=== PATIENT | male | born 1995 | race Caucasian/White ===

== ENCOUNTER 2016-09-02 17:58 | Emergency (ER) | payer OTHER ==
[~2016-09-02] VITALS: Ht 177.8 cm; Wt 86.0 kg
[2016-09-02 18:09] VITALS: BP 107/68; TEMP 36.6; Ht 177.8 cm; Wt 86.0 kg
[2016-09-02] MEDS ORDERED: SODIUM CHLORIDE 0.9% 1000ML 1,000 ML IV STA (18:16)
[2016-09-02] MEDS ORDERED: FENTANYL CITRATE INJ 50 MCG/1 ML 2 ML VIAL IV STA (18:16)
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
[2016-09-02] MEDS ORDERED: HYDROmorphone INJ 1 MG/ML SYR IV PRN (18:30)
--- NOTE | 2016-09-02 19:05 | DIAGNOSTIC IMAGING REPORT ---
RIGHT FOREARM 2 VIEWS ROUTINE CLINICAL HISTORY: right forearm injury Right COMPARISON STUDY: None. FINDINGS: Displaced midshaft fractures involving the radius and ulna. There is soft tissue swelling within the mid forearm. The wrist and elbow joints appear maintained. Bone fractures definite acute 1 cm of displacement. There is also mild overlap of the ulnar fracture. IMPRESSION: Displaced midshaft fractures of the right radius and ulna. Electronically signed by: Júnior Mckenna M.D. 09/02/2016 7:04 PM Dictated Date/Time: 09/02/2016 7:02 PM
[2016-09-02] MEDS ORDERED: OXYCODONE IR HOME PACK PO ONE (19:45)
[2016-09-02 20:09] VITALS: PULSE 48; O2SAT 100
== END 2016-09-02 20:15 | disposition home or self-care (01) ==
LOC: C.EDB 18:00
DX: M79.631 Pain in right forearm (principal); V18.0XXA Pedal cycle driver injured in noncollision transport accident in nontraffic accident, initial encounter; S52.291A Other fracture of shaft of right ulna, initial encounter for closed fracture; S52.391A Other fracture of shaft of radius, right arm, initial encounter for closed fracture

== ENCOUNTER 2024-11-08 06:50 | Observation (INO) ==
--- NOTE | 2024-10-12 10:34 | PAT Medication Instructions ---
Medication Instructions Date of Service October 12, 2024 Home Medications Medication Instructions Recorded ergocalciferol (vitamin D2) 1,250 1,250 mcg PO Q7D #8 caps 04/05/24 mcg (50,000 unit) capsule diclofenac sodium 75 mg 75 mg PO BID PRN pain #60 tabs 04/18/24 tablet,delayed release Medical Marijuana 1 ea PO DAILY PRN Anxiety & Pain naltrexone 4.5 mg capsule 4.5 mg PO DAILY ergocalciferol (vitamin D2) 1,250 mcg (50,000 unit) capsule 1,250 mcg PO Q7D diclofenac sodium 75 mg tablet,delayed release 75 mg PO BID PRN pain omega 0-ziz-txr-fish oil 1,000 mg (120 mg-180 mg) capsule (Fish Oil) 1 cap PO DAILY dextroamphetamine-amphetamine 5 mg tablet (Adderall) 5 mg PO BID clobetasol 0.05 % topical cream 1 applic topical BID PRN Skin Irritation vitamin K2 1 cap PO DAILY Continue as directed naltrexone 4.5 mg capsule 4.5 mg PO DAILY ASK your surgeon for instructions diclofenac sodium 75 mg tablet,delayed release 75 mg PO BID PRN pain STOP taking 2 weeks before surgery (or as soon as possible if surgery is within 2 weeks) omega 9-xgq-pco-fish oil 1,000 mg (120 mg-180 mg) capsule (Fish Oil) 1 cap PO DAILY vitamin K2 1 cap PO DAILY STOP taking 24 hours before surgery clobetasol 0.05 % topical cream 1 applic topical BID PRN Skin Irritation DO NOT take the morning of surgery Medical Marijuana 1 ea PO DAILY PRN Anxiety & Pain ergocalciferol (vitamin D2) 1,250 mcg (50,000 unit) capsule 1,250 mcg PO Q7D dextroamphetamine-amphetamine 5 mg tablet (Adderall) 5 mg PO BID Take evening before surgery Medical Marijuana 1 ea PO DAILY PRN Anxiety & Pain (if needed) dextroamphetamine-amphetamine 5 mg tablet (Adderall) 5 mg PO BID MORNING OF SURGERY: NOTHING TO EAT OR DRINK AFTER MIDNIGHT Other Notes If you have any questions please call us at [phone] or [phone] or [phone] or [phone]
--- NOTE | 2024-10-20 11:28 | Anesthesiology Consultation ---
Date of Service October 20, 2024 Assessment & Plan (1) Encounter for pre-operative examination: - Outpatient joint pathway: Per surgeon and patient, plan for outpatient joint program. Upon review of chart- patient is an acceptable candidate for Same Day Joint Program from anesthesia perspective pending perioperative course. Pending patient is motivated, has good support and surgeon's office completes Same Day Joint Program preop requirements- patient may proceed with outpatient [facility]. Chart Review Chart Review: Acceptable Risk for Surgery and Patient seen in Pre Admission Testing Teaching & Discussion Pre-Anesthesia Teaching/Discussion Notes: Instructed NPO after midnight before surgery, except medications with 15 cc of water. Medication instructions provided according to the PAT guidelines. History Surgery Operation Date: 11/08/24 08:50 Proposed Procedures p Right Total Hip Arthroplasty - Enrico Whitfield MD Height/Weight Height: 5 ft 10 in Weight: 88.9 kg Allergies Allergy/AdvReac Type Severity Reaction Status Date / Time No Known Allergies Allergy Unknown Verified 10/07/24 15:29 Medications Home Medications Medication Instructions Recorded Confirmed Last Taken Medical Marijuana 1 ea PO DAILY PRN Anxiety & Pain 03/12/23 10/07/24 Unknown naltrexone 4.5 mg capsule 4.5 mg PO DAILY 04/04/24 10/07/24 Unknown ergocalciferol (vitamin D2) 1,250 1,250 mcg PO Q7D #8 caps 04/05/24 10/07/24 Unknown mcg (50,000 unit) capsule diclofenac sodium 75 mg 75 mg PO BID PRN pain #60 tabs 04/18/24 10/07/24 Unknown tablet,delayed release omega 8-ijn-yhp-fish oil 1,000 mg 1 cap PO DAILY 04/18/24 10/07/24 Unknown (120 mg-180 mg) capsule (Fish Oil) dextroamphetamine-amphetamine 5 mg 5 mg PO BID 06/27/24 10/07/24 Unknown tablet (Adderall) clobetasol 0.05 % topical cream 1 applic topical BID PRN Skin 10/07/24 10/07/24 Unknown Irritation vitamin K2 1 cap PO DAILY 10/07/24 10/07/24 Unknown Past Medical History Medical History (Updated 10/20/24 @ 11:25 by Tricia Deleon PA-C) ADD (attention deficit disorder) Deformity of right thumb joint Elevated blood pressure reading without diagnosis of hypertension Hip arthritis Psoriatic arthritis Patient denies h/o stroke, seizures, heart attack, heart failure, DM, blood clots/DVTs or blood transfusions. Exercise / Class Metabolic Activity II 4-5 Yardwork/Stairs/Walk up hill (denies chest discomfort or shortness of breath with one flight of stairs) Past Family History Family History Father Alcohol abuse Anxiety Depression Diabetes Heart disease Hypertension Mother Anxiety Depression PTSD (post-traumatic stress disorder) Grandfather (Maternal) Colon cancer Denies family history of Ovarian cancer Prostate cancer Myocardial infarction Breast cancer Colorectal cancer Past Surgical History Surgical History Hx of wisdom tooth extraction S/P ORIF (open reduction internal fixation) fracture Right Arm - Hardware present Past Anesthesia History No Hx of Anesthesia Complications and No Family Hx of Anesthesia Complications History of PONV No Hx of PONV and No Hx of Motion Sickness Social History Smoking Status: Never smoker Do You Dip or Chew Tobacco: No Hx Alcohol Use: Yes Alcohol type: beer alcohol intake frequency: a few times a week Hx Substance Use: Yes substance use type: other Substance Use Type Other:: Tinctures, Vapes, Edibles - Medical Marijuana-advised Last Used Substance: Unknown Review of Systems Patient denies chest pain, shortness of breath, dyspnea on exertion, snoring, witnessed apneas, reflux, fever, chills, cough, wheezing, or palpitations. Physical Exam Vital Signs Vitals BP 138/91 P 85 TEMP 97.7 SP02 98% on RA RESP 17 Physical Patient resting comfortably in chair in no acute distress, alert and oriented, responding appropriately throughout visit Full cervical extension range of motion without pain TMD 3.5 finger breadths Mallampati Score 3 Dentition: permanent repair front, denies chipped or loose teeth, caps/crowns, implants or bridges Lungs: normal respiratory effort. Good air movement, clear throughout to auscultation, no adventitious breath sounds Cardiac: regular rate and rhythm, no murmurs noted Carotid arteries: negative bruit bilat Lab Results Anesthesia Preop Results Results Anesthesia Widget: 2 WBC 7.62 K/ul (4.8-10.8) 10/20/24 Hgb 13.7 g/dl (14.0-18.0) L 10/20/24 Hct 41.7 % (42.0-52.0) L 10/20/24 Plt 348 K/uL (130-400) 10/20/24 Na 140 mmol/L (136-145) 10/20/24 K 4.2 mmol/L (3.5-5.1) 10/20/24 Cl 106 mmol/L (98-107) 10/20/24 CO2 30 mmol/L (21-32) 10/20/24 BUN 10 mg/dl (6-23) 10/20/24 Creat 0.77 mg/dl (0.6-1.4) 10/20/24 Glucose Level 90 mg/dl (70-99(Fasting)) 10/20/24 PT 11.2 Seconds (9.0-12.0) 10/20/24 PTT 32 Seconds (21-31) H 10/20/24 INR 1.0 (0.9-1.1) 10/20/24 Blood Type A Positive 10/20/24 Antibody Screen NEGATIVE 10/20/24 Testing Electrocardiogram Date: 10/20/24 NSR with sinus arrhythmia, rate 71 bpm Chest X-Ray Date: 10/20/24 No acute findings.
[~2024-11-08 06:50] MED LIST: BUPIVACAINE 0.5 % 5 MG/1 ML PF 10ML VIAL ONE
[2024-11-08] MEDS: ACETAMINOPHEN 500 MG TAB PO SCH ×2 (07:13→15:00)
[2024-11-08] MEDS: LR 60ML/HR IV SCH (07:13)
[2024-11-08] MEDS: CeleBREX 200 MG CAP PO SCH (07:13)
[2024-11-08] MEDS: FAMOTIDINE 20 MG TAB PO SCH (07:13)
[2024-11-08] MEDS: dexAMETHasone**PF** 10 MG/ML VIAL IV SCH (07:13)
[2024-11-08] MEDS: METOCLOPRAMIDE HCL 10 MG TABLET PO SCH (07:13)
[2024-11-08] MEDS: LR 500ML BOLUS, THEN 15ML/HR IV SCH (07:31)
[2024-11-08] MEDS ORDERED: LIDOCAINE 2% 2 ML VIAL/AMP(20MG/ML) INFIL ONE (07:52)
[2024-11-08] MEDS ORDERED: MIDAZOLAM HCL 1 MG/ML 2ML VIAL ONE ×2 (07:52→09:09)
[2024-11-08] MEDS ORDERED: PROPOFOL IV EMULSION 10 MG/ML 20 ML VIAL IV ONE (07:52)
[2024-11-08] MEDS ORDERED: ONDANSETRON INJ 2 MG/ML 2 ML VIAL IV PRN ×3 (08:11→12:27)
[2024-11-08] MEDS ORDERED: ATROPINE SULFATE 0.1 MG/ML 10ML SYR IV PRN (08:11)
[2024-11-08] MEDS ORDERED: ePHEDrine sulfate 50 MG/ML AMP IV PRN ×2 (08:11→09:00)
[2024-11-08] MEDS ORDERED: MoRPHine SULFATE PF 1 MG/ML 10 ML AMP/VIAL ONE (08:27)
--- NOTE | 2024-11-08 08:41 | History & Physical Bridge Note ---
Date of Service November 08, 2024 History & Physical Bridge Note I have examined the patient, reviewed the History & Physical and in the interval since the performance of the History & Physical I have noted the following changes of clinical significance: no changes noted
[2024-11-08] MEDS: TRANEXAMIC ACID 1,000 MG **IV Pre-op IV SCH (08:44)
[2024-11-08] MEDS ORDERED: HYDROmorphone INJ 0.5 MG/0.5 ML SYR IV PRN ×2 (09:00→12:27)
[2024-11-08] MEDS ORDERED: NALOXONE HCL 0.4 MG/1 ML VIAL/CARP IV PRN ×2 (09:00→12:27)
[2024-11-08] MEDS ORDERED: oxyCODONE HCL IR 5 MG TAB (IMMEDIATE RELEASE) PO PRN (09:00)
[2024-11-08] MEDS ORDERED: diphenhydrAMINE 50 MG/ML VIAL IV PRN (09:00)
[2024-11-08] MEDS ORDERED: DC INTRASPINAL MORPHINE SCH (09:00)
[2024-11-08] MEDS ORDERED: PROMETHAZINE 6.25 MG/50.25 ML BAG IV PRN (09:00)
[2024-11-08] MEDS ORDERED: NALOXONE HCL 1 MG in SODIUM CHLORIDE 0.9% 1,000 ML IV PRN (09:00)
[2024-11-08] MEDS ORDERED: NO NARCOTICS OR SEDATIVES SCH (09:00)
[2024-11-08] MEDS ORDERED: NALBUPHINE HCL INJ 10 MG/ML AMP IV PRN (09:00)
[2024-11-08] MEDS ORDERED: NALOXONE HCL 0.08 MG in SYRINGE 1.8 ML IV PRN (09:00)
[2024-11-08] MEDS: ceFAZolin 2000MG 2,000 MG/15 ML SYR IV SCH ×2 (09:07→15:31)
[2024-11-08] MEDS: BUPIVACAINE/EPINEPHRINE 0.5% MPF 1:200,000 30 ML VIAL ONE (09:44)
[2024-11-08] MEDS ORDERED: ONDANSETRON INJ 2 MG/ML 2 ML VIAL ONE (09:54)
--- NOTE | 2024-11-08 10:42 | Operative Report ---
PG Post Operative Report Pre & Post Diagnosis Operation Date: 11/08/24 08:50 Pre-Op Diagnosis: Right Hip Osteoarthritis Post-Op Diagnosis: Right Hip Osteoarthritis I identified the patient and participated in the time-out.: Yes Procedure Operation Date: 11/08/24 08:50 Actual Procedures p Right Total Hip Arthroplasty(Right) - Enrico Whitfield MD Surgeon Enrico Whitfield MD Clin Tech Osmani Salgado PA-C Estimated Blood Loss 100 Findings Consistent with Post-Op Diagnosis Specimens Right femoral head sent for pathology. Anesthesia Type Spinal MAC Complications none Disposition Accompanied Patient To Recovery: No Indications Patient is a 29-year-old fairly active gentleman with underlying psoriatic arthritis whose had a several year history of increasing right hip pain discomfort and stiffness. He failed conservative measures over time. X-rays show advanced arthritis consistent with inflammatory arthritis. He failed medical management. He elected proceed with total hip arthroplasty. Description of Procedure Operative implants consists of: 1. Biomet G7 size 52 mm acetabular shell. 2. 6.5 cancellous acetabular screws 1 of 35 mm length and 1 to 25 mm length. 3. [place] hole snuff maker. 4. Highly cross-linked polyethylene liner with a 52 mm outer diameter and 36 mm diameter. 5. DePuy Karaya size 11 KLA femoral stem. 6. +5/36 mm ceramic articular ball. The patient was taken the op room, identified, placed on the operating table in the supine position. All conductors were appropriately padded. IV antibiotics fibra anesthesia team. A spinal anesthetic had been implemented holding area. The patient was then placed in the left lateral decubitus position. An axillary roll was placed. A stool Birkett position was used for positioning. The right hip and leg were then prepped and draped in usual sterile fashion. A posterolateral approach to the right hip was then performed to a curvilinear incision centered over the greater trochanter. Sharp dissection was carried through subcutaneous tissue down to the level of the IT band gluteal fascia with the IT band gluteal fascia was sized longitudinally in line with skin incision. The underlying greater bursa was excised. The piriformis and external rotators along with the posterior joint capsule were then released from the posterior aspect the hip as a single layer. Great care was taken throughout the procedure to protect the sciatic nerve at all times. The hip was internally rotated and dislocated. A femoral neck osteotomy cut was made with a Final Cut 15 mm above the lesser trochanter. Femoral head was removed and sent for pathology. The femur was retracted anteriorly. The acetabular labrum was excised. The Pulvinal fat was excised. Sequential reaming the acetabulum was then performed again with a size 47 and progressing up to 51. I reamed a little bit with a 52 reamer and then placed a 52 mm Biomet cup in about 40 degrees lateral opening and 20 degrees of anteversion. It was fixed with two 6.5 screws. A trial liner was placed. An anterior acetabular osteophyte was removed. Attention drawn the femur. The proximal femur was entered with a [employer] cutter followed by canal finder. I then broached begin with size 8. His cancellous bone was extremely healthy and sturdy. Even with the 8 9 broach it took quite a bit of impact to place the broaches. I broached up to a size 11. We got excellent fitted 11. We elected to stop. Trial hip. With the +5 articular ball of the leg lengths appeared equal, soft tissue tension was appropriate and the whole construct was fully sta ble in full extension and external rotation and internal rotation to over 70 degrees at 90 degrees of flexion. We elected place these implants. All trial implants were removed. An apex hole snuff maker was placed. Highly cross-linked polyethylene liner was placed. A size 11 KLA femoral stem was impacted in position. +5/36 mm ceramic articular ball was placed. Hip was located and once again found to be stable. Attention then drawn toward closing. The wound was irrigated with copious amounts of pulsatile lavage solution. I did inject locally with 60 cc of half percent Marcaine with epinephrine. Posterior capsule and external rotators were then repaired through drill holes in the trochanter with #2 Tycron suture. The IT band gluteal fascia was then closed in 1 PDS suture running fashion. Subcutaneous tissue then closed with 2 layers of the deep layer #1 Vicryl suture in the subcutaneous tissues with 2-0 Dexon suture in a buried interrupted fashion. Skin was closed skin jess. Leg was then cleaned and dried and a sterile dressing with Xeroform, 4 fours, sterile ABD pad and foam tape was applied. The patient then transferred to the recovery room in stable condition. Patient tolerated the procedure well and there are no complications. Osmani Salgado, my physician butcher's assistant, was present for the entire procedure. His assistance was essential and required for appropriate patient positioning, prepping and draping, surgical exposure, performing the technical details of the operation, placement the implants, closure of the wound, and placement of the sterile bandage. I attest to the content of the Intraoperative Record and any orders documented therein. Any exceptions are noted below.
--- NOTE | 2024-11-08 10:49 | XRay Report ---
XR hip 1V RT w pelvis CLINICAL HISTORY: Postoperative evaluation. COMPARISON: Right hip radiographs March 24, 2024. FINDINGS: Alignment of the total right hip arthroplasty is anatomic. There is no periprosthetic frac ture or unexpected radiopaque foreign body. Skin jess are noted. IMPRESSION: Expected findings following total right hip arthroplasty. ACT 112: Negative or not required by law. Electronically signed by: Andrew Hernandez M.D. 11/08/2024 10:47 AM
[2024-11-08] MEDS ORDERED: traMADol HCL 50 MG TABLET PO PRN (12:27)
[2024-11-08] MEDS ORDERED: METOCLOPRAMIDE HCL INJ 5 MG/ML 2 ML VIAL IV PRN (12:27)
[2024-11-08] MEDS ORDERED: bisacodyL 10 MG SUPP PR PRN (12:27)
[2024-11-08] MEDS ORDERED: MAGNESIUM HYDROXIDE SUSP 30 ML UDC PO PRN (12:27)
[2024-11-08] MEDS ORDERED: ALUMINUM/MAGNESIUM SUSP 30 ML UDC PO PRN (12:27)
[2024-11-08] MEDS ORDERED: diphenhydrAMINE Capsule 25 MG CAP PO PRN (12:27)
[2024-11-08] MEDS ORDERED: MEDICAL MARIJUANA PO PRN (12:27)
[2024-11-08] MEDS ORDERED: ACETAMINOPHEN 500 MG TAB PO SCH (14:00)
--- NOTE | 2024-11-08 14:17 | Anesthesiology Progress Note ---
Date of Service November 08, 2024 Anesthesia Post Procedure Vital Signs Vital Signs: Temp Pulse Pulse Resp BP BP Pulse Ox 11/08/24 14:12 18 100 11/08/24 14:12 36.4 C L 56 L 18 153/83 H 100 11/08/24 13:22 60 16 138/84 98 11/08/24 13:20 16 98 11/08/24 12:46 52 L 16 134/82 97 11/08/24 12:20 14 97 11/08/24 12:20 36.5 C 69 14 134/84 97 11/08/24 12:10 51 L 17 128/82 98 11/08/24 11:55 53 L 15 126/71 97 11/08/24 11:40 64 18 136/67 98 11/08/24 11:25 56 L 18 114/67 97 11/08/24 11:10 36.4 C L 57 L 20 128/83 98 11/08/24 11:00 56 L 18 125/67 99 11/08/24 10:50 59 L 17 145/74 H 100 11/08/24 10:40 64 15 138/79 100 11/08/24 10:30 36.0 C L 84 14 149/93 H 100 11/08/24 07:07 36.4 C L 80 20 141/100 H 99 O2 Del Method O2 Flow Rate 11/08/24 14:12 11/08/24 14:12 Room Air 11/08/24 13:22 Room Air 11/08/24 13:20 11/08/24 12:46 Room Air 11/08/24 12:20 11/08/24 12:20 Room Air 11/08/24 12:10 Room Air 11/08/24 11:55 Room Air 11/08/24 11:40 Room Air 11/08/24 11:25 Room Air 11/08/24 11:10 Room Air 11/08/24 11:00 Room Air 11/08/24 10:50 Room Air 11/08/24 10:40 Oxymask 2 11/08/24 10:30 Oxymask 4 11/08/24 07:07 Room Air Transfer of Care Handoff Completed per policy Notes Mental Status: alert / awake / arousable Patient Amnestic to Procedure: Yes Nausea / Vomiting: adequately controlled Pain: adequately controlled Airway Patency, RR, SpO2: stable & adequate BP & HR: stable & adequate Hydration State: stable & adequate Neuraxial Anesthesia: was administered and sensory block is resolving Anesthetic Complications: no major complications apparent and Pt Satisfied with anesthetic care
[2024-11-08] MEDS: KETOROLAC 30 MG/ML VIAL IV SCH (15:00)
[2024-11-08] MEDS: TRANEXAMIC ACID / 0.7% NACL 1,000 MG/100 ML BAG IV SCH (15:32)
[2024-11-08] MEDS: ASCORBIC ACID 500 MG TAB PO SCH (15:58)
[2024-11-08] MEDS: ASPIRIN 81 MG ECTAB PO SCH (20:49)
[2024-11-08] MEDS: DOCUSATE SODIUM 100 MG CAP PO SCH (20:49)
[2024-11-08] MEDS: SENNA 8.6 MG TAB PO SCH (20:49)
[2024-11-08] MEDS ORDERED: SENNA 8.6 MG TAB PO SCH (21:00)
[2024-11-08] MEDS: CLOBETASOL PROPIONATE 0.05% CREAM 15 GM TUBE TOP SCH (21:17)
[2024-11-08] MEDS: MoRPHine SULFATE PF 1 MG/ML 10 ML AMP/VIAL INT SPINAL ONE (22:49)
[2024-11-09 07:23] VITALS: BP 138/74; PULSE 67; RESP 15; TEMP 97.5; O2SAT 98
[2024-11-09 07:43] LABS: Basophils # (auto) 0.01 K/uL (0.00-0.20); Basophils % (auto) 0.1 %; Hematocrit (blood only) 37.4 % (42.0-52.0); Hemoglobin 12.4 g/dl (14.0-18.0); Immature Granulocytes # (auto) 0.05 K/uL (0.01-0.20); Immature Granulocytes % (auto) 0.4 %; Lymphocytes # (auto) 1.11 K/uL (1.20-3.40); Lymphocytes % (auto) 8.7 %; Mean Corpuscular Hemoglobin 26.8 pg (25.0-34.0); Mean Corpuscular Hgb Conc 33.2 g/dL (32.0-36.0); Mean Platelet Volume 8.8 fL (9.4-12.4); Monocytes # (auto) 0.91 K/uL (0.11-0.59); Monocytes % (auto) 7.1 %; Neutrophils # (auto) 10.72 K/uL (1.40-6.50); Neutrophils % (auto) 83.7 %; Platelet Count 339 K/uL (130-400); RDW Coefficient of Variation 13.3 % (11.5-14.5); RDW Standard Deviation 38.5 fL (36.4-46.3); Red Blood Count 4.62 M/uL (4.70-6.10)
[2024-11-09 08:12] LABS: BUN Creatinine Ratio 17.1 (10-20); Calcium 8.4 mg/dl (8.6-10.3); Creatinine Clr Calc Pharmacy 160.1 ml/min; Potassium 4.6 mmol/L (3.5-5.1)
[2024-11-09] MEDS ORDERED: VITAMIN K2 PO SCH (09:00)
[2024-11-09] MEDS: dexAMETHasone 10 MG in SYRINGE 0 ML IV SCH (09:14)
[2024-11-09] MEDS: OMEGA-3 (PURIFIED FISH OIL) 1 GM CAP PO SCH (09:15)
[2024-11-09] MEDS: ERGOCALCIFEROL 1250 MCG (50,000 UNITS) CAP PO SCH (09:15)
[2024-11-09] MEDS: MULTIVITAMIN TAB PO SCH (09:16)
[2024-11-09] MEDS: DEXTROAMPHETAMINE/AMPHETAMIME IR 5 MG TAB PO SCH (09:19)
--- NOTE | 2024-11-09 09:41 | Orthopedic Progress Note ---
Date of Service November 09, 2024 Assessment & Plan (1) Status post right hip replacement: Assessment: Status post right total hip arthroplasty. Plan: Overall, he is doing quite well today with good pain control of the right hip. He will work with physical therapy later this morning to work on ambulation and range of motion exercises. He was started on aspirin for DVT prophylaxis. He can be discharged home later this morning pending formal physical therapy evaluation recommendation. His dressings will be changed with the assistance of of home health after discharge. He was able to hot die picker his medication and has no questions about his medications at this time. He will follow-up with Dr. Whitfield in 2 to 3 weeks for continued postoperative management or sooner if needed. Subjective Doris Ramos was seen this morning resting comfortably no apparent distress. He notes that his pain is well-controlled to the right hip. He has been up and out of bed without any significant issues. He has yet to work physical therapy this morning. He denies any concerns with his surgical incision site. Denies any active bleeding, discharge, or signs of infection. Denies any other concerns today. Review of Systems All systems reviewed & are unremarkable except as noted in HPI & below. Physical Exam . On physical examination of the right hip, dressing is clean, dry, intact with no signs of active bleeding, discharge, or signs of infection. His leg is on full extension. Limited range of motion strength secondary to postoperative stiffness soreness. Calf soft nontender to palpation. Negative Homans' sign. Intact plantarflexion and dorsiflexion of the right ankle. +2 DP and PT pulses. Less than 2-second capillary refill. Normal sensation. Neurovascular intact. Results & Data Results & Data Laboratory Results . Diagnostic Findings . Hip/Pelvis X-Ray 11/08/24 10:33 XR hip 1V RT w pelvis CLINICAL HISTORY: Postoperative evaluation. COMPARISON: Right hip radiographs March 24, 2024. FINDINGS: Alignment of the total right hip arthroplasty is anatomic. There is no periprosthetic fracture or unexpected radiopaque foreign body. Skin jess are noted. IMPRESSION: Expected findings following total right hip arthroplasty. ACT 112: Negative or not required by law. Electronically signed by: Andrew Hernandez M.D. 11/08/2024 10:47 AM PG Care Time/CCT Total # of Minutes Spent Total Time Spent with Patient: Total time spent is greater than 50% in coordination of care (as documented) at patient's floor/unit and/or counseling patient: Coding Level of Care Code 60267 Post Operative Follow-Up Diagnoses Status post right hip replacement Z96.641
--- NOTE | 2024-11-09 09:42 | Discharge Summary ---
Date of Service November 09, 2024 Principal Diagnosis Same as "Discharge Diagnosis" noted below under Discharge Instructions. Discharge Exam . On physical examination of the right hip, dressing is clean, dry, intact with no signs of active bleeding, discharge, or signs of infection. His leg is on full extension. Limited range of motion strength secondary to postoperative stiffness soreness. Calf soft nontender to palpation. Negative Homans' sign. Intact plantarflexion and dorsiflexion of the right ankle. +2 DP and PT pulses. Less than 2-second capillary refill. Normal sensation. Neurovascular intact. Discharge Data Procedures Performed Operation Date: 11/08/24 08:50 Actual Procedures p Right Total Hip Arthroplasty(Right) - Enrico Whitfield MD Hospital Course (1) Status post right hip replacement: On November 08, 2024 Richard arrived at [facility] and underwent a right total hip arthroplasty performed with Dr. Whitfield with no complications. He had a spinal anesthetic. Postoperatively, he was started on aspirin for DVT prophylaxis and transferred to the general orthopedic floor in stable condition. His hospital course was uneventful. On postoperative day #1, his vital signs were stable and his pain was well-controlled. He participated well with physical therapy working on ambulation and range of motion exercises. He was then discharged home in stable condition. He will follow-up with Dr. Whitfield in 2 to 3 weeks for continued postoperative management or sooner if needed. PG Care Time/CCT Total # of Minutes Spent Total Time Spent with Patient: Total time spent is greater than 50% in coordination of care (as documented) at patient's floor/unit and/or counseling patient: Discharge Plan Discharge Items Patient Disposition: Home - Home Health Services Reason For Visit: Right Hip Osteoarthritis Discharge Diagnosis: Right Hip Replacement Activity: Per Instructions section Activity Comment: Follow/Obey hip precautions at all times. Weightbearing: Full weightbearing Weightbearing Comment: Weightbear as tolerated obeying hip precautions at all times. Non-emergency contact: Surgeon Call non-emergency contact if: you have any medication questions Follow-up/Referrals: Amaury Horton DO [Primary Care Provider] - Diet: Regular Addtl Attending Provider Instructions: ACTIVITY RECOMMENDATIONS: Diet: * You may resume previous diet. Physical Therapy: * Aggressive physical therapy is not usually needed. You will learn to take care of yourself safely and walk. * Follow the "Hip Precautions Instructions." * In some cases, the social media manager at the hospital will arrange to have a therapist come to your house for the first couple of weeks to help you learn these skills. * You need to practice on your own or with the help of a family member as needed. * When you learn these skills, most of the therapy can be done on your own. Home Exercise: * You were shown a series of exercises in the hospital. Do these exercises three to four times each day including the exercises you were shown in physical therapy. Walking: * Get up and walk several times each day. For the first four weeks, try not to stand or walk for more than one hour at a time. If you do stand or walk for more than one hour, you will not hurt anything, but your leg will likely swell. * As you feel comfortable, you may change from the walker or crutches to a cane and then to independent walking. MEDICATIONS: New Medicine: * You will likely be taking one or more of these medicines: 1. Tramadol - Take, as directed, when you need it, every six hours to control your pain. 2. Aspirin - Thins your blood to lessen the chance of forming a blood clot. * The most common side effects of pain medicine and iron are nausea and constipation. If nausea or constipation is too much of a problem or if you have any questions about your new medicines or doses, call [facility] at . We will try to help you manage these issues. "VERY IMPORTANT TO READ AND REVIEW" Pain: * The immediate post-operative period after hip replacement surgery is often quite painful. * You are given a prescription for pain medicine. You should take it, as directed, when you need it, especially before physical therapy and before going to bed. Pain that interferes with sleep is very common and can last several months. * You will likely need pain medicine for the first two to four weeks. It will not stop all of the pain. The pain will lessen and as you feel better, you may change to milder pain medicine such as Tylenol. * The most common side effects of pain medicine are nausea and constipation, so don't take more than you need. SPECIAL CARE INSTRUCTIONS: TEDs/Elastic Stockings: * The white elastic stockings help limit swelling and prevent blood clots from forming in your legs. The more you wear them, the more they work. * Wear them for six weeks. Incision Site Care: * Remove dressing postoperative day 2 and then shower. Keep direct shower pressure off the incision site. * After showering, cover jess with dry gauze and change daily or more frequently if the dressing is getting saturated with drainage. * May completely stop using bandage if wound is dry and no drainage * Stanford are removed between 2 and 3 weeks post-op. If your follow-up appointment is made before 2 weeks, please have your appointment re- scheduled. It is too early to remove the jess. Prevention of Infection: * Take antibiotics one hour before any dental cleaning, dental work, urological procedure, gastrointestinal procedure or any invasive surgery in order to prevent your new joint from getting infected. * You may get the antibiotics from the doctor performing the procedure or you may call our office at before and we will call in a prescription to the pharmacy of your choice. Things to Watch For: * Drainage from the incision site that occurs more than one week after your surgery. * Severely increased leg pain or swelling. * Increased redness at the incision site. * Fever above 102 degrees Fahrenheit. * Unusual chest pain or shortness of breath. * Unusual pain or burning with urination. Call [facility] at with any of the above problems or if you have any questions about your medicines or recovery. FOLLOW UP VISIT: Make an appointment to see your doctor for approximately two weeks after surgery for a progress check and staple removal by calling the office at . Pending Studies at Discharge: No Stand-Alone Forms: My [facility], Smoking Cessation Medications and DC Order Prescriptions: Continued ergocalciferol (vitamin D2) 1,250 mcg (50,000 unit) capsule 1,250 mcg PO Q7D Qty: 8 0RF Rx Instructions: 1 tab po weekly for 8 weeks. Check blood work after completing prescription. tramadol 50 mg tablet 50 - 100 mg PO Q6 PRN (Reason: pain) Qty: 40 0RF Rx Instructions: Take as needed for pain ondansetron 4 mg tablet,disintegrating 4 mg PO Q8 PRN (Reason: nausea) Qty: 20 1RF Rx Instructions: Take as needed for nausea ketorolac 10 mg tablet 10 mg PO Q6 PRN (Reason: pain) 5 Days Qty: 20 0RF Rx Instructions: Take 4 times per day with food for 5 days to lessen pain and swelling. sennosides [Senokot] 8.6 mg tablet 8.6 mg PO BID 14 Days Qty: 28 0RF Rx Instructions: Take two times a day to prevent/treat constipation acetaminophen [Tylenol Extra Strength] 500 mg tablet 1,000 mg PO TID 30 Days Qty: 180 0RF Rx Instructions: Take 3 times per day to lessen pain. aspirin [Geovanny Low Dose Aspirin] 81 mg tablet,delayed release (DR/EC) 81 mg PO BID 45 Days Qty: 90 0RF Rx Instructions: Take to prevent blood clots. cefadroxil 500 mg capsule 500 mg PO BID 7 Days Qty: 14 0RF Rx Instructions: Take 1 cap twice a day to prevent infection Medical Marijuana 1 ea PO DAILY PRN (Reason: Anxiety & Pain) Rx Instructions: Varied routes. Uses tinctures, vapes, edibles. naltrexone 4.5 mg capsule 4.5 mg PO DAILY Patient Comments: "I need to get it refilled" omega 0-clz-ntt-fish oil [Fish Oil] 1,000 (120-180) mg capsule 1 cap PO DAILY dextroamphetamine-amphetamine [Adderall] 5 mg tablet 5 mg PO BID clobetasol 0.05 % cream 1 applic topical BID Qty: 30 2RF Rx Instructions: Apply to areas of the extremities twice daily x 2 weeks. Then stop x 2 weeks. Repeat as directed. vitamin K2 1 cap PO DAILY Discontinued diclofenac sodium 75 mg tablet,delayed release (DR/EC) 75 mg PO BID PRN (Reason: pain) Qty: 60 2RF Rx Instructions: Take with food Admission Data Admit Date/Time: 11/08/24 10:33 Attending Provider: Enrico Whitfield Admit Provider: Enrico Whitfield Primary Care Provider: Amaury Horton
== END 2024-11-09 11:06 | disposition home health service (06) ==
LOC: 3E 06:50 → ASU 06:50